=== PATIENT | female | born 1970 | race Caucasian/White ===

== ENCOUNTER 2016-05-02 12:36 | Inpatient (IN) | payer OTHER ==
[2016-05-02] MEDS ORDERED: Phenergan 25 MG INJ IM ONE (12:59)
[2016-05-02] MEDS ORDERED: Pepcid 20 MG VIAL IV ONE ×2 (12:59→13:24)
[2016-05-02] MEDS ORDERED: Sodium Chloride 0.9% 1000 ML 1,000 ML IV STA ×2 (12:59→14:08)
[2016-05-02] MEDS ORDERED: DILAUDID 1 MG/ML INJECTION IV ONE (12:59)
[2016-05-02 13:19] LABS: Eosinophil % 0.3 % (0.00-5.0); Granulocytes % 82.9 % (36.0-66.0); Lymphocytes % 11.1 % (24.0-44.0); Mean Cell Volume 89.9 fl (78-100); Mean Corpuscular Hemoglobin 30.4 pg (26-32); Mean Platelet Volume 8.9 fl (6-9.5); Monocytes % 5.7 % (0.0-12.0); Platelet Count 311 K/mm3 (150-450); Red Blood Count 5.03 M/mm3 (4.1-5.4); Red Cell Distribution Width 12.7 % (11.5-14.0)
[2016-05-02] MEDS ORDERED: Phenergan 25 MG INJ ONE (13:24)
[2016-05-02] MEDS ORDERED: DILAUDID 1 MG/ML INJECTION ONE (13:24)
[2016-05-02] MEDS ORDERED: Sodium Chloride 0.9% 1000 ML 1,000 ML ONE ×2 (13:24→14:10)
[2016-05-02] MEDS ORDERED: Zofran 4 MG/2 ML VIAL IV ONE (13:40)
--- NOTE | 2016-05-02 13:40 | ERPHSYRPT ---
- History of Present Illness Time Seen by Provider: 05/02/16 12:57 Historian: patient, family () Patient Subjective Stated Complaint: ruq abd pain since 299 today. hx of gb disease and is scheduled to have it removed in may. also having nausea Triage Nursing Assessment: to room per w/c, skin w/d, color normal. patient holding ruq abd. states had severe nausea. Physician History: CC: abd pain Hx: 46 y/o patient of Dr Morse and Klaus Covington. She has had intermittent abd pain and had GB testing showing low EF. Today she has rather severe RUQ and epigastric abd pain that is severe. N/V. No urinary problems, fever or chills. Pain is sharp. Prior hysterectomy. Timing/Duration: today Severity of Pain-Max: severe Severity of Pain-Current: severe Allergies/Adverse Reactions: codeine Allergy (Verified 05/02/16 12:49) Home Medications: Insulin Aspart [Novolog Flexpen] 20 unit SQ HS 03/31/16 [History] Insulin Detemir [Levemir Flexpen] 40 unit SQ HS 03/31/16 [History] Glipizide [Glipizide ER] 10 mg PO DAILY 05/02/16 [History] Metformin HCl [Metformin HCl ER] 750 mg PO HS 05/02/16 [History] Hx Tetanus, Diphtheria Vaccination/Date Given: Yes Hx Influenza Vaccination/Date Given: Yes Hx Pneumococcal Vaccination/Date Given: Yes - Review of Systems Constitutional: Fatigue, Malaise, No Fever, No Chills Eyes: No Symptoms Ears, Nose, & Throat: No Symptoms Respiratory: No Cough Cardiac: No Chest Pain Abdominal/Gastrointestinal: Abdominal Pain, Nausea, Vomiting, No Diarrhea Genitourinary Symptoms: No Symptoms Musculoskeletal: No Symptoms Skin: No Symptoms Neurological: No Dizziness, No Focal Weakness, No Headache, No Parasthesia All Other Systems: Reviewed and Negative - Past Medical History Pertinent Past Medical History: Yes Endocrine Medical History: Diabetes Type II GI Medical History: Gallbladder Disease - Past Surgical History Past Surgical History: Yes Female Surgical History: Hysterectomy, Section Other Surgical History: ROTATOR CUFF LEFT 2013, Laparoscopy LT SHOULDER 2012 - Social History Smoking Status: Never smoker Exposure to second hand smoke: No Drug Use: none Patient Lives Alone: No - Nursing Vital Signs Nursing Vital Signs: Initial Vital Signs Temperature 98.4 F Temperature Source Oral Pulse Rate 119 Respiratory Rate 22 Blood Pressure [] 129/86 Pain Intensity 3 - Physical Exam General Appearance: alert, other (uncomfortable appearing) Eye Exam: PERRL/EOMI Ears, Nose, Throat Exam: normal ENT inspection, moist mucous membranes Neck Exam: normal inspection, non-tender, supple Respiratory Exam: normal breath sounds, lungs clear Cardiovascular Exam: regular rate/rhythm, No murmur Gastrointestinal/Abdomen Exam: soft, tenderness (epigastric and RUQ that is severe with guarding) Back Exam: normal inspection Extremity Exam: normal inspection, normal range of motion Neurologic Exam: alert, oriented x 3, cooperative, sensation nml, No motor deficits Skin Exam: warm, dry, No rash SpO2 Interpretation: normal SpO2: 97 Oxygen Delivery: Room Air - Course Nursing assessment & vital signs reviewed: Yes EKG Interpreted by Me: RATE (112), Sinus Tach, NORMAL AXIS, Q-wave (inferior), Non-specific ST Changes (poor r wave progression) - Radiology Exams AAS/CXR X-ray Interpretation: Discussed w/ radiologist, Negative Ordered Tests: Active Orders 24 hr Category Date Time Status EKG-ER Only STAT Care 05/02/16 13:40 Active IV Insertion STAT Care 05/02/16 12:59 Active NPO (ED) STAT Care 05/02/16 12:59 Active Consult Surgery ROUTINE Cons 05/02/16 15:16 Active OBSTR/ACUTE ABDOMEN SERIES Stat Exams 05/02/16 12:59 Completed BLOOD CULTURE Stat Lab 05/02/16 15:17 Ordered CBC W DIFF Stat Lab 05/02/16 12:50 Completed CMP Stat Lab 05/02/16 12:50 Completed LIPASE Stat Lab 05/02/16 12:50 Completed Lactic Acid Urgent Lab 05/02/16 13:15 Completed Lactic Acid Urgent Lab 05/02/16 15:16 Ordered Medication Summary Generic Name Dose Route Start Last Admin Trade Name Freq PRN Reason Stop Dose Admin Piperacillin Sod/Tazobactam Sod 100 mls @ 100 mls/hr 05/02/16 15:17 Zosyn 3.375gm/100 Ml D5w IV 05/02/16 16:16 STAT ONE Discontinued Medications Generic Name Dose Route Start Last Admin Trade Name Freq PRN Reason Stop Dose Admin Famotidine 20 mg 05/02/16 12:59 05/02/16 13:35 Pepcid 20 Mg Vial IV 05/02/16 13:00 20 mg STAT ONE Administration Famotidine Confirm 05/02/16 13:24 Pepcid 20 Mg Vial Administered 05/02/16 13:25 Dose 20 mg IV .STK-MED ONE Hydromorphone HCl 1 mg 05/02/16 12:59 05/02/16 13:35 Dilaudid 1 Mg/Ml Injection IV 05/02/16 13:00 1 mg STAT ONE Administration Hydromorphone HCl Confirm 05/02/16 13:24 Dilaudid 1 Mg/Ml Injection Administered 05/02/16 13:25 Dose 1 mg .ROUTE .STK-MED ONE Sodium Chloride 1,000 mls @ 999 mls/hr 05/02/16 12:59 05/02/16 13:33 Sodium Chloride 0.9% 1000 Ml IV 05/02/16 13:59 999 mls/hr .Q1H1M STA Administration Sodium Chloride Confirm 05/02/16 13:24 Sodium Chloride 0.9% 1000 Ml Administered 05/02/16 13:25 Dose 1,000 mls @ ud .ROUTE .STK-MED ONE Sodium Chloride 1,000 mls @ 999 mls/hr 05/02/16 14:08 05/02/16 14:12 Sodium Chloride 0.9% 1000 Ml IV 05/02/16 15:08 999 mls/hr .Q1H1M STA Administration Sodium Chloride Confirm 05/02/16 14:10 Sodium Chloride 0.9% 1000 Ml Administered 05/02/16 14:11 Dose 1,000 mls @ ud .ROUTE .STK-MED ONE Ondansetron HCl 4 mg 05/02/16 13:40 05/02/16 13:46 Zofran 4 Mg/2 Ml Vial IV 05/02/16 13:41 4 mg STAT ONE Administration Ondansetron HCl Confirm 05/02/16 13:45 Zofran 4 Mg/2 Ml Vial Administered 05/02/16 13:46 Dose 4 mg .ROUTE .STK-MED ONE Promethazine HCl 25 mg 05/02/16 12:59 05/02/16 13:35 Phenergan 25 Mg Inj IM 05/02/16 13:00 25 mg STAT ONE Administration Promethazine HCl Confirm 05/02/16 13:24 Phenergan 25 Mg Inj Administered 05/02/16 13:25 Dose 25 mg .ROUTE .STK-MED ONE Lab/Rad Data: Laboratory Result Diagrams 05/02/16 12:50 05/02/16 12:50 Laboratory Results 05/02/16 05/02/16 05/02/16 Range/Units 13:15 12:50 12:50 WBC 22.0 H (4.0-10.5) K/mm3 RBC 5.03 (4.1-5.4) M/mm3 Hgb 15.3 (12.0-16.0) gm/dl Hct 45.2 (35-47) % MCV 89.9 (78-100) fl MCH 30.4 (26-32) pg MCHC 33.8 (32-36) g/dl RDW 12.7 (11.5-14.0) % Plt Count 311 (150-450) K/mm3 MPV 8.9 (6-9.5) fl Gran % 82.9 H (36.0-66.0) % Lymphocytes % 11.1 L (24.0-44.0) % Monocytes % 5.7 (0.0-12.0) % Eosinophils % 0.3 (0.00-5.0) % Basophils % 0.0 (0.0-0.4) % Basophils # 0.01 (0-0.4) Sodium 139 (136-145) mEq/L Potassium 4.6 (3.5-5.1) mEq/L Chloride 102 (98-107) mEq/L Carbon Dioxide 22.9 (21-32) mEq/L Anion Gap 18.4 H (5-15) MEQ/L BUN 14 (9-20) mg/dL Creatinine 0.92 (0.55-1.30) mg/dl Estimated GFR > 60 ML/MIN Glucose 265 H (70-110) MG/DL Lactic Acid 3.8 H (0.4-2.0) Calcium 9.4 (8.5-10.1) mg/dL Total Bilirubin 0.5 (0.2-1.0) mg/dL AST 18 (15-37) U/L ALT 33 (12-78) U/L Alkaline Phosphatase 72 (46-116) U/L Serum Total Protein 8.5 H (6.4-8.2) gm/dL Albumin 4.2 (3.4-5.0) g/dL Lipase 245 (73-393) U/L - Progress Progress Note: 05/02/16 15:17 The pain is improved. 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 Called Dr tony for Dr Covington. He advised medical admission, abtx, hydration. Paged Dr Morse for admission. Counseled pt/family regarding: lab results, diagnosis, need for follow-up, rad results - Departure Time of Disposition: 15:18 Departure Disposition: In-patient Admission Clinical Impression: Acute abdominal pain, Acute acalculous cholecystitis Type 2 diabetes mellitus Qualifiers: Diabetes mellitus complication status: without complication Diabetes mellitus long term care social worker insulin use: with long term care social worker use Qualified Code(s): E11.9 - Type 2 diabetes mellitus without complications; Z79.4 - intermediate (current) use of insulin Condition: Stable Critical Care Time: No
--- NOTE | 2016-05-02 13:43 | XRAY ---
Indication: Right upper quadrant abdominal pain. Comparison: None 2 views of the abdomen nonacute and nonobstructed. Multiple pelvic surgical clips. Solid organs and osseous structures unremarkable. Single frontal chest demonstrates normal heart, lungs, and bony thorax. Impression: Nonacute nonobstructed abdomen. Normal 1 view chest.
[2016-05-02] MEDS ORDERED: Zofran 4 MG/2 ML VIAL ONE (13:45)
[2016-05-02 14:14] LABS: ALBUMIN 4.2 g/dL (3.4-5.0); ALKALINE PHOSPHATASE 72 U/L (46-116); ANION GAP 18.4 MEQ/L (5-15); BILIRUBIN,TOTAL 0.5 mg/dL (0.2-1.0); BLOOD UREA NITROGEN 14 mg/dL (9-20); CHLORIDE 102 mEq/L (98-107); Carbon Dioxide 22.9 mEq/L (21-32); Glucose 265 MG/DL (70-110); LIPASE 245 U/L (73-393); Potassium 4.6 mEq/L (3.5-5.1); SGOT/AST 18 U/L (15-37); SGPT/ALT 33 U/L (12-78); SODIUM 139 mEq/L (136-145); Total Protein 8.5 gm/dL (6.4-8.2)
[2016-05-02] MEDS ORDERED: Zosyn 3.375GM/100 Ml D5W 100 ML IV ONE ×2 (15:17→15:34)
[2016-05-02] MEDS ORDERED: Zofran 4 MG/2 ML VIAL IV PRN (15:56)
[2016-05-02] MEDS ORDERED: NovoLOG Insulin SQ PRN (15:56)
--- NOTE | 2016-05-02 16:01 | CONS ---
CONSULT DATE: 05/02/16 HISTORY OF PRESENT ILLNESS: The patient is a 46 y/o female who had some right upper quadrant pain, nausea, vomiting, and diarrhea. Has been going on for a few days. She had episodes back in March. Ended up having an US that showed fatty infiltration of the liver, no stones. She had an ejection fraction of 1% and she had seen Dr. Covington and had been set up for gallbladder eventually, but has had increased symptoms and needed admission at this time. PAST MEDICAL HISTORY: Diabetes. PAST SURGICAL HISTORY: Had , rotator cuff. She arthroscopic shoulder surgery. Hysterectomy. HOME MEDICATIONS: Include glipizide, metformin, and she takes some insulin. FAMILY HISTORY: Negative with regards to this problem. SOCIAL HISTORY: Rare alcohol use. Denies abuse. REVIEW OF SYSTEMS: 10 systems reviewed per admission assessment pertinent for as noted above. No chest pain or palpitations. Other systems negative or noncontributory other than above or per preadmission questionnaire. PHYSICAL EXAMINATION: Temperature 98.4, pulse is in the low 100s, BP 129/86, pulse Ox 96%, WBC 22. GENERAL: Slightly uncomfortable. Otherwise, no acute distress. HEENT: Sclerae nonicteric. NECK: No JVD. CHEST: Equal excursion. Nonlabored breathing. CVS: Regular rhythm. ABDOMEN: Soft. Had some mild tenderness in right upper quadrant. No peritoneal signs currently. EXTREMITIES: No significant edema. NEURO: Alert, moving extremities symmetrically. No gross motor deficits noted. On her CT scan, she did have some mesenteric nodes or enlarged mesenteric adenitis back in March. Again, HIDA ejection fraction 1%. IMPRESSION: RIGHT UPPER QUADRANT PAIN, NAUSEA, VOMITING, DIARRHEA. Can be exacerbation of chronic cholecystitis, symptomatic biliary dyskinesia with acute exacerbation vs enteritis or mesenteric adenitis viral syndrome. Either way, she needs IV hydration tonight. Likely, if she is improved, likely would plan on considering cholecystectomy tomorrow at some point, laparoscopic cholecystectomy, possible open. General risks of bleeding; infection; risk of trocar injury or hernia; small risk of bowel, bladder, or blood vessel injury; small risk of bile leak, bile duct injury, retained stone or sludge possibly requiring further procedures either open or endoscopic retrograde cholangiopancreatography; general risks of anesthesia, deep vein thrombosis, pulmonary embolism, or pneumonia; perioperative risks of aches, pains, bloating, or constipation and/or loose stools possibly chronic in nature; the possibility that if this procedure didn't improve her symptoms, she may need further work-up and/or testing, endoscopy or other studies or procedures. She understands. She also understands she could also have a viral syndrome and enteritis on top of her gallbladder issue given her CT findings and diarrhea. She understands and agrees to the planned procedure. Will hydrate her up tonight, keep her NPO after midnight, possible cholecystectomy tomorrow some time. She agrees with the plan. Thank you for the consult.
[2016-05-02] MEDS: Pepcid 20 MG VIAL IV SCH (21:49)
[2016-05-02] MEDS: Lantus Insulin SQ SCH (21:49)
[2016-05-02] MEDS: DILAUDID 2 MG INJECTION IV PRN (22:08)
[2016-05-02] MEDS: Zosyn 3.375GM/100 Ml D5W 100 ML IV SCH (22:22)
[2016-05-03] MEDS: Zosyn 3.375GM/100 Ml D5W 100 ML IV SCH ×4 (00:11→18:13)
[2016-05-03] MEDS: DILAUDID 2 MG INJECTION IV PRN ×2 (04:27→11:23)
[2016-05-03 06:23] LABS: Eosinophil % 2.3 % (0.00-5.0); Granulocytes % 47.2 % (36.0-66.0); Lymphocytes % 44.1 % (24.0-44.0); Mean Cell Volume 93.1 fl (78-100); Mean Platelet Volume 8.6 fl (6-9.5); Monocytes % 6.4 % (0.0-12.0); Platelet Count 239 K/mm3 (150-450); Red Cell Distribution Width 12.7 % (11.5-14.0); White Blood Count 10.5 K/mm3 (4.0-10.5)
[2016-05-03 06:27] LABS: Mean Corpuscular Hemoglobin 30.2 pg (26-32)
[2016-05-03 06:33] LABS: ALBUMIN 3.3 g/dL (3.4-5.0); ALKALINE PHOSPHATASE 57 U/L (46-116); ANION GAP 7.2 MEQ/L (5-15); BILIRUBIN,TOTAL 0.4 mg/dL (0.2-1.0); BLOOD UREA NITROGEN 8 mg/dL (9-20); CHLORIDE 105 mEq/L (98-107); Carbon Dioxide 25.1 mEq/L (21-32); Glucose 122 MG/DL (70-110); Potassium 3.7 mEq/L (3.5-5.1); SGOT/AST 13 U/L (15-37); SGPT/ALT 24 U/L (12-78); SODIUM 134 mEq/L (136-145); Total Protein 6.8 gm/dL (6.4-8.2)
[2016-05-03] MEDS ORDERED: Decadron 4 MG INJ IV ONE (08:00)
[2016-05-03] MEDS ORDERED: DIPRIVAN 200 MG/20 ML IV ONE (08:00)
[2016-05-03] MEDS ORDERED: SUBLIMAZE 100 MCG/2 ML IV ONE (08:00)
[2016-05-03] MEDS ORDERED: ROBINUL IV ONE (08:00)
[2016-05-03] MEDS ORDERED: TORAdol 30 mg Injection IV ONE (08:00)
[2016-05-03] MEDS ORDERED: Zofran 4 MG/2 ML VIAL IV ONE (08:00)
[2016-05-03] MEDS ORDERED: Quelicin Fliptop 200 MG/10 ML IV ONE (08:00)
[2016-05-03] MEDS ORDERED: Versed 2 MG/2 ML Injection IV ONE (08:00)
[2016-05-03] MEDS ORDERED: DILAUDID 2 MG INJECTION IV ONE (08:00)
[2016-05-03] MEDS ORDERED: Zemuron 100 MG/10 ML IV ONE (08:00)
[2016-05-03] MEDS ORDERED: BLOXIVERZ IV ONE (08:00)
[2016-05-03] MEDS ORDERED: Pepcid 20 MG VIAL IV SCH (09:15)
[2016-05-03] MEDS ORDERED: Lactated Ringers 1,000 ML IV SCH (09:15)
[2016-05-03] MEDS: Pepcid 20 MG VIAL IV SCH ×2 (09:22→21:16)
[2016-05-03] MEDS: Lantus Insulin SQ SCH ×2 (09:23→21:14)
[2016-05-03] MEDS ORDERED: MEFOXIN 2 GM PREMIX** 50 ML IV SCH (10:00)
--- NOTE | 2016-05-03 10:14 | PCM.NOTE ---
Date and Time: 05/03/16 1012 Subjective Assessment: patient has felt a little better today, no vomiting this morning. still has pain but is improved. Objective Exam General Appearance: no apparent distress, alert, obese Skin Exam: normal color, warm, dry Respiratory Exam: normal breath sounds, lungs clear, No respiratory distress Cardiovascular Exam: regular rate/rhythm, normal heart sounds Gastrointestinal/Abdomen Exam: tenderness (ruq), No guarding, No rebound Extremity Exam: normal inspection, normal range of motion OBJECTIVE DATA Vital Signs: Vital Signs - 24 hr Temp Pulse Resp BP BP Pulse Ox 05/03/16 07:16 97.8 F 91 H 20 114/65 97 05/03/16 04:00 97.8 F 83 18 115/56 97 05/03/16 00:00 97.8 F 86 18 113/63 95 05/02/16 20:00 98.5 F 101 H 17 116/63 99 05/02/16 16:08 98.3 F 112 H 16 115/69 96 05/02/16 15:42 127/78 05/02/16 15:19 97 05/02/16 14:08 119 H 22 129/86 96 05/02/16 13:38 115 H 22 131/83 97 05/02/16 12:43 98.4 F 125 H 20 142/84 97 Pain Assessment - Last Documented Pain Intensity 2 Pain Scale Used 0-10 Pain Scale Intake and Output: Intake & Output 04/30/16 05/01/16 05/02/16 05/03/16 11:59 11:59 11:59 11:59 Intake Total 2121 Balance 2122 Weight 86.806 kg Lab Results: Accuchecks Date 05/03/16 Date 05/03/16 Time 06:02 Time 00:28 Accucheck Value: 129 Accucheck Value: 111 Lab Results-Last 24 Hours 05/03/16 05/03/16 Range/Units 05:25 05:25 WBC 10.5 (4.0-10.5) K/mm3 RBC 3.90 L (4.1-5.4) M/mm3 Hgb 11.8 L (12.0-16.0) gm/dl Hct 36.3 (35-47) % MCV 93.1 (78-100) fl MCH 30.2 (26-32) pg MCHC 32.5 (32-36) g/dl RDW 12.7 (11.5-14.0) % Plt Count 239 (150-450) K/mm3 MPV 8.6 (6-9.5) fl Gran % 47.2 (36.0-66.0) % Lymphocytes % 44.1 H (24.0-44.0) % Monocytes % 6.4 (0.0-12.0) % Eosinophils % 2.3 (0.00-5.0) % Basophils % 0.0 (0.0-0.4) % Basophils # 0 (0-0.4) Sodium 134 L (136-145) mEq/L Potassium 3.7 (3.5-5.1) mEq/L Chloride 105 (98-107) mEq/L Carbon Dioxide 25.1 (21-32) mEq/L Anion Gap 7.2 (5-15) MEQ/L BUN 8 L (9-20) mg/dL Creatinine 0.67 (0.55-1.30) mg/dl Estimated GFR > 60 ML/MIN Glucose 122 H (70-110) MG/DL Calcium 8.1 L (8.5-10.1) mg/dL Total Bilirubin 0.4 (0.2-1.0) mg/dL AST 13 L (15-37) U/L ALT 24 (12-78) U/L Alkaline Phosphatase 57 (46-116) U/L Serum Total Protein 6.8 (6.4-8.2) gm/dL Albumin 3.3 L (3.4-5.0) g/dL Multi-Disciplinary Progress Notes: Multi-Disciplinary Progress Notes 05/03/16 07:51 Case Management Note by Kimberly Sheehan DISCHARGE PLAN REVIEWED. PT NORMALLY ACTIVE AND INDEPENDENT OF ALL ADL'S. LIVES AT HOME WITH SPOUSE AND CHILDREN. PLAN TO RETURN HOME TO PRE EPISODIC LEVEL OF FUNCTION. WILL CONTINUE TO MONITOR FOR ALL D/C NEEDS. Initialized on 05/03/16 07:51 - END OF NOTE Assessment/Plan (1) Acute acalculous cholecystitis Current Visit: Yes Status: Acute Assessment & Plan: continue zosyn, surgery has been consulted. patient is NPO for possible cholecystectomy today Code(s): K81.0 - ACUTE CHOLECYSTITIS (2) Type 2 diabetes mellitus Current Visit: Yes Status: Acute Qualifiers: Diabetes mellitus complication status: without complication Diabetes mellitus penitentiary insulin use: with dedicated intermodal truck driver use Qualified Code(s): E11.9 - Type 2 diabetes mellitus without complications; Z79.4 - [facility] (current) use of insulin Assessment & Plan: stable, on sliding scale insulin at this time
[2016-05-03] MEDS ORDERED: Lactated Ringers 1,000 ML IV ONE ×2 (14:20→16:35)
[2016-05-03] MEDS ORDERED: Sensorcaine 0.25% 10 ML ONE (14:20)
--- NOTE | 2016-05-03 14:55 | HP ---
HISTORY OF PRESENT ILLNESS: This is a 46-year-old patient with history of chronic cholecystitis and diabetes mellitus type 2, presented to the emergency department today with right upper quadrant pain, vomiting and diarrhea. She states the pain started about 3 a.m. She just saw Dr. Covington yesterday in consultation about having her gallbladder taken out. I had seen her on April 11, 2016, and referred her to Dr. Covington after she had had a HIDA scan with injection fraction of 1% that was ordered by the ER doctor who saw her before she came to see me as a new patient. The patient reports her pain was a 9/10 and then a 4/10 after she received the pain medicine. She denied any fevers, reports she has had chills and sweating. She reports decreased appetite yesterday and feeling bloated. REVIEW OF SYSTEMS: She denies any chest pain, no dyspnea, no dysuria, no rashes, no lower extremity edema, otherwise, review of systems is negative. ALLERGIES: CODEINE AND LATEX. MEDICATIONS: Glipizide 10 mg ER 1 tablet b.i.d., Levemir 20 units Flexpen b.i.d., Metformin 750 mg tablet, 3 tablets a day; Novolog sliding scale which she does herself. PAST MEDICAL HISTORY: Diabetes mellitus type 2, history of high blood pressure but currently off medications, hyperlipidemia. She denies any history of heart problems. SURGICAL HISTORY: She has had rotator cuff repair in her left shoulder in 2014, and arthroscopic surgery of her left shoulder in 2010. Scope of her knee in 1987. Hysterectomy in the past, tubal ligation, x2. SOCIAL HISTORY: She is and lives with her , her sister and her niece. She rarely drinks alcohol. She quit smoking in 2006. FAMILY HISTORY: Her father had heart disease and at 62. She has a brother with heart disease, a sister with heart disease. Her mother had diabetes and kidney disease and at age 50 from respiratory failure and also at the end of her life found a tumor on her esophagus. PHYSICAL EXAMINATION: VITAL SIGNS: T-current 98.3, T-Max 98.4, heart rate 112 to 125, currently 112. Respiratory rate 16 to 22, blood pressure 115 to 131 over 69 to 86. Weight 86 kg. Oxygen saturation 96 to 97% on room air. Respiratory rate 20 to 22. GENERAL: The patient is a pleasant, talkative lady sitting up in no acute distress, alert and oriented. CARDIOVASCULAR: She is tachycardic with regular rhythm, no murmurs, gallops or rubs appreciated. CHEST: Clear to auscultation bilaterally. No crackles or wheezes. Equal breath sounds. ABDOMEN: Tender in the right upper quadrant, no guarding, no rigidity. Hypoactive bowel sounds. EXTREMITIES: No cyanosis, clubbing or edema.; SKIN: Warm, dry and intact. LABS: Her white blood cell count was 22,000 with 82% granulocytes, 11% lymphocytes. Glucose 265. Lactic acid on admission was 3.8, and repeat was 2.3. Normal is up to 2.0. LFT's were normal. She had 2 blood cultures in lab. An acute abdominal series was read as being normal. ASSESSMENT AND PLAN: 1. Acute cholecystitis with history of chronic cholecystitis. The general surgeon has seen her and planning on doing surgery while she is here in the hospital. She is on IV Zosyn. Will plan to repeat her CBC in the morning. 2. Diabetes mellitus type 2. I am going to give her some long-acting insulin, 10 units subcutaneously b.i.d., which is approximately half of what she normally takes and we will do a low dose sliding scale of Novolog. 3. Abnormal EKG. She has Q waves in leads III and aVF. She reports that she is able to exercise on the treadmill without any chest pain, and that she had a Lexiscan 5 years ago in [place] that was normal. Given her good exercise tolerance she would be okay to proceed with the gallbladder surgery. 4. History of high blood pressure, blood pressure is currently well controlled.
[2016-05-03] MEDS ORDERED: Zofran 4 MG/2 ML VIAL ONE (16:34)
[2016-05-03] MEDS ORDERED: Phenergan 25 MG INJ ONE (16:43)
[2016-05-03] MEDS ORDERED: NORCO 5/325 MG PO PRN (17:32)
[2016-05-03] MEDS ORDERED: MORPHINE SULFATE 4 MG INJ IV PRN (17:32)
[2016-05-03] MEDS: D5W/0.45NS W/ 20mEq KCl 1000 ML 1,000 ML IV SCH (17:47)
[2016-05-03] MEDS: NovoLOG Insulin SQ PRN (21:14)
[2016-05-04] MEDS: Zosyn 3.375GM/100 Ml D5W 100 ML IV SCH (00:17)
[2016-05-04] MEDS: D5W/0.45NS W/ 20mEq KCl 1000 ML 1,000 ML IV SCH (05:26)
[2016-05-04 05:59] LABS: Granulocytes % 75.1 % (36.0-66.0); Lymphocytes % 19.1 % (24.0-44.0); Mean Cell Volume 92.5 fl (78-100); Mean Platelet Volume 8.8 fl (6-9.5); Monocytes % 5.8 % (0.0-12.0); Platelet Count 207 K/mm3 (150-450); Red Blood Count 3.71 M/mm3 (4.1-5.4); Red Cell Distribution Width 12.3 % (11.5-14.0); White Blood Count 9.4 K/mm3 (4.0-10.5)
[2016-05-04 06:01] LABS: Mean Corpuscular Hemoglobin 30.4 pg (26-32)
[2016-05-04 06:22] LABS: ALBUMIN 3.1 g/dL (3.4-5.0); ALKALINE PHOSPHATASE 64 U/L (46-116); ANION GAP 14.5 MEQ/L (5-15); BILIRUBIN,TOTAL 0.3 mg/dL (0.2-1.0); BLOOD UREA NITROGEN 7 mg/dL (9-20); CHLORIDE 104 mEq/L (98-107); Carbon Dioxide 24.4 mEq/L (21-32); Glucose 321 MG/DL (70-110); Potassium 4.5 mEq/L (3.5-5.1); SGOT/AST 25 U/L (15-37); SGPT/ALT 37 U/L (12-78); SODIUM 138 mEq/L (136-145); Total Protein 6.7 gm/dL (6.4-8.2)
[2016-05-04 07:12] VITALS: BP 124/65; PULSE 78; O2SAT 98
--- NOTE | 2016-05-04 07:13 | PCM.DS ---
Discharge Summary Date of Admission: 05/02/16 15:53 Admitting Physician: JOHANN BALDERAS Primary Care Provider: CHRISTIN FELTON Allergies Allergies codeine Allergy (Verified 05/02/16 12:49) latex Allergy (Verified 05/02/16 17:04) Hospital Summary - Hospital Course Hospital Course: patient doing great s/p lap cholecystectomy pod #1, tolerating po intake. + flatus - Vitals & Intake/Output Vital Signs: Vital Signs Temperature 98 F 05/04/16 04:15 Pulse Rate 66 05/04/16 04:15 Respiratory Rate 16 05/04/16 04:15 Blood Pressure 132/76 05/04/16 04:15 O2 Sat by Pulse Oximetry 97 05/04/16 04:15 Oxygen-Last Documented O2 Percentage 2 Liters = 28% Intake & Output: Intake & Output 05/01/16 05/02/16 05/03/16 05/04/16 11:59 11:59 11:59 11:59 Intake Total 2 2324 Balance 2121 2324 Weight 86.806 kg 86.806 kg - Lab Result Diagrams: 05/04/16 04:30 05/04/16 04:30 Lab Results-Last 24 Hrs: Accuchecks Accucheck Value: 310 Accucheck Value: 283 Accucheck Value: 216 Accucheck Value: 144 Lab Results-Last 24 Hours 05/04/16 05/04/16 Range/Units 04:30 04:30 WBC 9.4 (4.0-10.5) K/mm3 RBC 3.71 L (4.1-5.4) M/mm3 Hgb 11.3 L (12.0-16.0) gm/dl Hct 34.3 L (35-47) % MCV 92.5 (78-100) fl MCH 30.4 (26-32) pg MCHC 32.9 (32-36) g/dl RDW 12.3 (11.5-14.0) % Plt Count 207 (150-450) K/mm3 MPV 8.8 (6-9.5) fl Gran % 75.1 H (36.0-66.0) % Lymphocytes % 19.1 L (24.0-44.0) % Monocytes % 5.8 (0.0-12.0) % Eosinophils % 0.0 (0.00-5.0) % Basophils % 0.0 (0.0-0.4) % Basophils # 0 (0-0.4) Sodium 138 (136-145) mEq/L Potassium 4.5 (3.5-5.1) mEq/L Chloride 104 (98-107) mEq/L Carbon Dioxide 24.4 (21-32) mEq/L Anion Gap 14.5 (5-15) MEQ/L BUN 7 L (9-20) mg/dL Creatinine 0.86 (0.55-1.30) mg/dl Estimated GFR > 60 ML/MIN Glucose 321 H (70-110) MG/DL Calcium 8.1 L (8.5-10.1) mg/dL Total Bilirubin 0.3 (0.2-1.0) mg/dL AST 25 (15-37) U/L ALT 37 (12-78) U/L Alkaline Phosphatase 64 (46-116) U/L Serum Total Protein 6.7 (6.4-8.2) gm/dL Albumin 3.1 L (3.4-5.0) g/dL Micro Results-Entire Visit: Accuchecks Accucheck Value: 310 Accucheck Value: 283 Accucheck Value: 216 Accucheck Value: 144 Discharge Exam General Appearance: no apparent distress, alert Respiratory Exam: normal breath sounds Cardiovascular Exam: regular rate/rhythm Gastrointestinal/Abdomen Exam: other (dressings c/d/i) Extremity Exam: normal inspection, normal range of motion Final Diagnosis/Problem List - Final Discharge Diagnosis/Problem (1) Acute acalculous cholecystitis Current Visit: Yes Status: Acute (2) Type 2 diabetes mellitus Current Visit: Yes Status: Acute - Discharge Disposition: Home, Self-Care Condition: Stable Prescriptions: Continue Insulin Aspart [Novolog Flexpen] 20 unit SQ HSPRN PRN PRN Reason: Hyperglycemia Insulin Detemir [Levemir Flexpen] 40 unit SQ HS Promethazine HCl 25 mg [Phenergan 25 mg] 25 mg PO Q4H PRN PRN #14 tablet PRN Reason: Nausea/Vomiting Metformin HCl [Metformin HCl ER] 3 tab PO HS Glipizide [Glipizide ER] 10 mg PO BID Pyridoxine HCl [Vitamin B-6] 100 mg PO DAILY Follow up with: BIANCA FERRARA [COURTESY STAFF] - 1 Week
[2016-05-04] MEDS: NovoLOG Insulin SQ PRN (08:11)
[2016-05-04] MEDS: Lantus Insulin SQ SCH (09:00)
--- NOTE | 2016-05-05 11:32 | OP ---
SURGERY DATE/TIME: 05/03/2016 1432 PREOPERATIVE DIAGNOSIS: Symptomatic biliary dyskinesia, acute exacerbation of chronic cholecystitis. POSTOPERATIVE DIAGNOSIS: Symptomatic dyskinesia, acute chronic cholecystitis. PROCEDURE: Laparoscopic cholecystectomy. SURGEON: Dr. Cas Gregory. ANESTHESIA: General. ESTIMATED BLOOD LOSS: Minimal. INDICATIONS: As noted above. Risks and benefits explained in detail but not limited to and consent obtained. DESCRIPTION OF PROCEDURE AND FINDINGS: The patient was taken to the OR. General anesthesia was induced. Abdomen prepped and draped in the usual sterile fashion. After official time out and no disagreement with planned procedure, a transverse incision made at the supraumbilical area. Fascia grasped and pulled upward. Veress needle inserted and tested with saline. Pneumoperitoneum accomplished insufflating opening pressure of 0-15. An 11 mm bladeless port and camera were inserted without difficulty followed by two - 5 mm right upper quadrant ports and a 5 mm epigastric port. The gallbladder was somewhat intrahepatic and fibrofatty replaced liver to left lobe flopping in the field of view but slowly and carefully the gallbladder was able to be retracted upward and laterally away from Calot's triangle. Dissection carried posterior, lateral to anterior fashion. It took some time given the mild chronic inflammatory reaction. It was slowly and carefully skeletonized until the critical view obtained both anteriorly and posteriorly. Once this was accomplished the cystic duct and cystic artery were clipped x3 and divided in the usual fashion. The gallbladder slowly and carefully dissected free from its dense almost concrete attachments to the liver bed, attached to the liver bed. Staying directly on the gallbladder wall clipping additional oozing side branches off of the cystic artery as necessary directly on the gallbladder wall. Just prior to releasing from final attachments to the edge of the liver the liver bed re-inspected. Clips noted to be in place in cystic duct and cystic artery stumps. There were no signs of any active bleeding or bile leakage. It was felt that there was no benefit from drain placement at this point. The gallbladder was released from final attachments to the anterior edge of the liver, pulled up and out the epigastrium wound. There was a small little pinhole from a grasper. A small amount of bile spilled. The gallbladder was able to be pulled free and passed off intact. Copious amount with several liters of warm irrigation irrigating the small amount of bile spilled as well as possible. There was no evidence of any stone or sludge. Copious amount of irrigation irrigating until clear. Liver bed re-inspected one last time. Clips noted to be in place in cystic duct and cystic artery stumps. There were no signs of any active bleeding or bile leakage. It was felt there was no benefit from drain placement. At this point the fascial defects at 10/11 port sites and supraumbilical area were closed with puncture closure device with #1 Vicryl. Pneumoperitoneum decompressed. The wound was irrigated out. Skin incision closed with 4-0 Vicryl. Steri-Strips and sterile dressing applied. 0.25% Marcaine local injected along the skin incision fascial defect. The patient tolerated the procedure well. There were no immediate complications. Findings discussed with the family out in the waiting area.
== END 2016-05-04 09:45 | disposition home or self-care (01) | DRG 419 ==
LOC: ED 12:36 → MED SURG 15:53 → OBSVTOIN 15:53
PROVIDERS: ADMIT Internal Medicine; ATTEND Internal Medicine
PROC: 0FT44ZZ Resection of Gallbladder, Percutaneous Endoscopic Approach (ICD-10-PCS; principal; 2016-05-03)
DX: K80.00 Calculus of gallbladder with acute cholecystitis without obstruction (principal); K82.8 Other specified diseases of gallbladder; E11.9 Type 2 diabetes mellitus without complications; Z79.4 Long term (current) use of insulin; R94.31 Abnormal electrocardiogram [ECG] [EKG]; I10 Essential (primary) hypertension; Z79.899 Other long term (current) drug therapy; Z90.49 Acquired absence of other specified parts of digestive tract
CPT/HCPCS: 00790; 36000; 36415; 74022; 80053; 82962; 83605; 83690; 85025; 87040; 93005; 96360; 96361; 96365; 96372; 96374; 96375; 99140; 99284; J0330; J0694; J1100; J1170; J1885; J2250; J2270; J2405; J2543; J2550; J2704; J2710; J3010

== ENCOUNTER 2018-06-29 08:19 | Emergency (ER) | payer BC ==
[2018-06-29] MEDS ORDERED: Sodium Chloride 0.9% 1000 ML 1,000 ML IV STA ×2 (08:43→09:15)
[2018-06-29] MEDS ORDERED: Zofran 4 MG/2 ML VIAL IV ONE (08:44)
--- NOTE | 2018-06-29 08:49 | ERPHSYRPT ---
- History of Present Illness Time Seen by Provider: 06/29/18 08:39 Historian: patient Exam Limitations: no limitations Patient Subjective Stated Complaint: diarrhea and unable to eat or drink anything or it comes right out Triage Nursing Assessment: Pt c/o of having severe diarrhea since Thursday, waking in the middle of the night approximately every 10-30 minutes to use the restroom, unable to eat or drink, took imodium yesterday with no results, denies pain, weak, dehydrated, vitals wnl, doesn't appear to be in any distress Physician History: 48-year-old white female with history of diabetes type 2 arrives with complaint of multiple episodes of diarrhea symptoms going on since last Thursday 4 days ago. Patient states every time she eats something she has loose stools she denies any bloody stool she does have some lower abdominal cramping. States she has decreased urine today she had a fever when the diarrhea started 4 days ago. She states she is nauseous but no vomiting. Past medical history includes diabetes type 2, gallbladder disease. Past surgical history includes hysterectomy, , rotator cuff on the left , laparoscopy, left shoulder surgery, tubal ligation. Social history denies tobacco alcohol or illicit drug use. Timing/Duration: day(s) (4 days) Activities at Onset: none Quality: cramping Abdominal Pain Onset Location: other (lower abdomen) Pain Radiation: no radiation Severity of Pain-Max: mild Severity of Pain-Current: mild Modifying Factors: Worsens With: analgesics, antacids, breathing, coughing, defecating, eating, exercise, lying down, movement, palpation, rest, urinating, vomiting, position, walking Associated Symptoms: diarrhea, nausea, weakness, No back, No chest pain, No diaphoresis, No fever/chills, No fatigue, No headache, No heartburn, No loss of appetite, No neck pain, No rash, No shortness of breath, No syncope, No vomiting Previous symptoms: no prior history Allergies/Adverse Reactions: codeine Allergy (Verified 06/29/18 08:36) latex Allergy (Verified 06/29/18 08:36) Home Medications: Insulin Aspart [Novolog Flexpen] 20 unit SQ HSPRN PRN 03/31/16 [History] Insulin Detemir [Levemir Flexpen] 50 unit SQ HS 03/31/16 [History] Glipizide [Glipizide ER] 10 mg PO BID 05/02/16 [History] Metformin HCl [Metformin HCl ER] 3 tab PO HS 05/02/16 [History] Atorvastatin Calcium [Lipitor] 80 mg PO DAILY 06/29/18 [History] Carvedilol 12.5 mg [Coreg 12.5 mg] 12.5 mg PO BID 06/29/18 [History] Colestipol HCl [Colestid] 1 gm PO DAILY 06/29/18 [History] Empagliflozin [Jardiance] 10 mg PO DAILY 06/29/18 [History] Ezetimibe 10 mg PO DAILY 06/29/18 [History] Gabapentin 300 mg PO DAILY 06/29/18 [History] PANTOPRAZOLE 40 mg Tablet [Protonix 40MG Tablet] 40 mg PO QAM 06/29/18 [ History] Hx Tetanus, Diphtheria Vaccination/Date Given: Yes Hx Influenza Vaccination/Date Given: Yes Hx Pneumococcal Vaccination/Date Given: Yes - Review of Systems Constitutional: Fever (fever 4 days ago), Malaise, Weakness, No Chills, No Fatigue, No Lethargy, No Night Sweats, No Weight Loss Eyes: No Symptoms Ears, Nose, & Throat: No Symptoms Respiratory: No Cough, No Dyspnea Cardiac: No Chest Pain, No Edema, No Syncope Abdominal/Gastrointestinal: Abdominal Pain (some lower abdominal cramping), Nausea, Diarrhea, No Vomiting, No Constipation, No Hematemesis, No Hematochezia , No Melena, No Dysphagia, No Appetite Changes Genitourinary Symptoms: No Dysuria, No Frequency, No Hematuria, No Hesitancy Musculoskeletal: No Back Pain, No Neck Pain Skin: No Rash Neurological: No Dizziness, No Focal Weakness, No Sensory Changes Psychological: No Symptoms Endocrine: No Symptoms All Other Systems: Reviewed and Negative - Past Medical History Pertinent Past Medical History: Yes Cardiac History: High Cholesterol, Hypertension Endocrine Medical History: Diabetes Type II GI Medical History: Gallbladder Disease - Past Surgical History Past Surgical History: Yes Gastrointestinal: Cholecystectomy Female Surgical History: Hysterectomy, Section Other Surgical History: ROTATOR CUFF LEFT 2013, Laparoscopy LT SHOULDER 2012, lt knee - Social History Smoking Status: Former smoker Exposure to second hand smoke: Yes Drug Use: none Patient Lives Alone: No - Female History Hx Now: No (hysterectomy) - Nursing Vital Signs Nursing Vital Signs: Initial Vital Signs Temperature 97.8 F 06/29/18 08:26 Pulse Rate 109 H 06/29/18 08:26 Respiratory Rate 20 06/29/18 08:26 Blood Pressure 137/101 06/29/18 08:26 O2 Sat by Pulse Oximetry 97 06/29/18 08:26 Pain Scale Pain Intensity 0 - Physical Exam General Appearance: mild distress, alert Eye Exam: PERRL/EOMI Ears, Nose, Throat Exam: normal ENT inspection, pharynx normal, moist mucous membranes Neck Exam: normal inspection, non-tender, supple, full range of motion Respiratory Exam: normal breath sounds, lungs clear, No respiratory distress Cardiovascular Exam: regular rate/rhythm, normal heart sounds, capillary refill <2 sec Gastrointestinal/Abdomen Exam: soft, normal bowel sounds, No tenderness, No mass Back Exam: normal inspection, normal range of motion, No CVA tenderness, No vertebral tenderness Extremity Exam: normal inspection, normal range of motion, pelvis stable Neurologic Exam: alert, oriented x 3, cooperative, electrical installer II-XII nml as tested, normal mood/affect, nml cerebellar function, sensation nml, No motor deficits Skin Exam: normal color, warm, dry SpO2 Interpretation: normal (97%) SpO2: 97 Ordered Tests: Active Orders 24 hr Category Date Time Status Accucheck STAT Care 06/29/18 08:54 Active IV Insertion STAT Care 06/29/18 08:43 Active AMYLASE Stat Lab 06/29/18 08:53 Completed CBC W DIFF Stat Lab 06/29/18 08:53 Completed CMP Stat Lab 06/29/18 08:53 Completed LIPASE Stat Lab 06/29/18 08:53 Completed Lactic Acid Stat Lab 06/29/18 09:00 Completed Manual Differential NC Stat Lab 06/29/18 08:53 Completed UA W/RFX UR CULTURE Stat Lab 06/29/18 10:03 Completed Medication Summary Discontinued Medications Generic Name Dose Route Start Last Admin Trade Name Freq PRN Reason Stop Dose Admin Sodium Chloride 1,000 mls @ 999 mls/hr 06/29/18 08:43 06/29/18 10:15 Sodium Chloride 0.9% 1000 Ml IV 06/29/18 09:43 Infused .Q1H1M STA Infusion Sodium Chloride Confirm 06/29/18 08:54 Sodium Chloride 0.9% 1000 Ml Administered 06/29/18 08:55 Dose 1,000 mls @ ud .ROUTE .STK-MED ONE Sodium Chloride 1,000 mls @ 999 mls/hr 06/29/18 09:15 06/29/18 10:14 Sodium Chloride 0.9% 1000 Ml IV 06/29/18 10:15 999 mls/hr .Q1H1M STA Administration Sodium Chloride Confirm 06/29/18 10:13 Sodium Chloride 0.9% 1000 Ml Administered 06/29/18 10:14 Dose 1,000 mls @ ud .ROUTE .STK-MED ONE Ondansetron HCl 4 mg 06/29/18 08:44 06/29/18 09:01 Zofran 4 Mg/2 Ml Vial IV 06/29/18 08:45 4 mg STAT ONE Administration Ondansetron HCl Confirm 06/29/18 08:55 Zofran 4 Mg/2 Ml Vial Administered 06/29/18 08:56 Dose 4 mg .ROUTE .STK-MED ONE Potassium Chloride 40 meq 06/29/18 09:16 06/29/18 09:26 Klor Con 10 Meq PO 06/29/18 09:17 40 meq STAT ONE Administration Potassium Chloride Confirm 06/29/18 09:17 Klor Con 10 Meq Administered 06/29/18 09:18 Dose 40 meq PO .STK-MED ONE Lab/Rad Data: Laboratory Result Diagrams 06/29/18 08:53 06/29/18 08:53 Laboratory Results 06/29/18 06/29/18 06/29/18 Range/Units 10:03 09:00 08:53 WBC (4.0-10.5) K/mm3 RBC (4.1-5.4) M/mm3 Hgb (12.0-16.0) gm/dl Hct (35-47) % MCV (78-100) fl MCH (26-32) pg MCHC (32-36) g/dl RDW (11.5-14.0) % Plt Count (150-450) K/mm3 MPV (6-9.5) fl Segmented Neutrophils (36.0-66.0) % Lymphocytes (Manual) (24-44) % Monocytes (Manual) (0.0-12.0) % Eosinophils (Manual) (0.00-3.0) % Atypical Lymphocytes % Platelet Estimate (NORMAL) RBC Morphology Sodium 139 (137-145) mmol/L Potassium 3.5 (3.5-5.1) mmol/L Chloride 108 H (98-107) mmol/L Carbon Dioxide 17 L (22-30) mmol/L Anion Gap 17.4 H (5-15) MEQ/L BUN 17 (7-17) mg/dL Creatinine 0.58 (0.52-1.04) mg/dL Estimated GFR > 60.0 ML/MIN Glucose 218 H (74-106) mg/dL Lactic Acid 1.3 (0.4-2.0) Calcium 9.1 (8.4-10.2) mg/dL Total Bilirubin 0.60 (0.2-1.3) mg/dL AST 36 (14-36) U/L ALT 44 H (0-35) U/L Alkaline Phosphatase 72 (38-126) U/L Serum Total Protein 7.8 (6.3-8.2) g/dL Albumin 4.4 (3.5-5.0) g/dL Amylase 60 (30-110) U/L Lipase 248 (23-300) U/L Urine Color YELLOW (YELLOW) Urine Appearance SLIGHTLY CLOUDY (CLEAR) Urine pH 5.0 (5-6) Ur Specific [place] 1.025 (1.005-1.025) Urine Protein 100 (Negative) Urine Ketones TRACE (NEGATIVE) Urine Blood NEGATIVE (0-5) Jose/ul Urine Nitrite NEGATIVE (NEGATIVE) Urine Bilirubin NEGATIVE (NEGATIVE) Urine Urobilinogen NEGATIVE (0-1) mg/dL Ur Leukocyte Esterase NEGATIVE (NEGATIVE) Urine WBC (Auto) 3-5 (0-5) /HPF Urine RBC (Auto) 0-2 (0-2) /HPF U Hyaline Cast (Auto) 3-5 (0-2) /LPF U Epithel Cells (Auto) RARE (FEW) /HPF Urine Bacteria (Auto) RARE (NEGATIVE) /HPF Other Casts (Auto) NEGATIVE (NEGATIVE) /LPF Urine Mucus (Auto) SLIGHT (NEGATIVE) /HPF Urine Culture Reflexed NO (NO) Urine Glucose NEGATIVE (NEGATIVE) mg/dL 06/29/18 Range/Units 08:53 WBC 6.0 (4.0-10.5) K/mm3 RBC 5.08 (4.1-5.4) M/mm3 Hgb 15.2 (12.0-16.0) gm/dl Hct 44.0 (35-47) % MCV 86.6 (78-100) fl MCH 29.9 (26-32) pg MCHC 34.5 (32-36) g/dl RDW 12.9 (11.5-14.0) % Plt Count 245 (150-450) K/mm3 MPV 8.6 (6-9.5) fl Segmented Neutrophils 38 (36.0-66.0) % Lymphocytes (Manual) 41 (24-44) % Monocytes (Manual) 13 H (0.0-12.0) % Eosinophils (Manual) 2 (0.00-3.0) % Atypical Lymphocytes 6 % Platelet Estimate NORMAL (NORMAL) RBC Morphology NORMAL Sodium (137-145) mmol/L Potassium (3.5-5.1) mmol/L Chloride (98-107) mmol/L Carbon Dioxide (22-30) mmol/L Anion Gap (5-15) MEQ/L BUN (7-17) mg/dL Creatinine (0.52-1.04) mg/dL Estimated GFR ML/MIN Glucose (74-106) mg/dL Lactic Acid (0.4-2.0) Calcium (8.4-10.2) mg/dL Total Bilirubin (0.2-1.3) mg/dL AST (14-36) U/L ALT (0-35) U/L Alkaline Phosphatase (38-126) U/L Serum Total Protein (6.3-8.2) g/dL Albumin (3.5-5.0) g/dL Amylase (30-110) U/L Lipase (23-300) U/L Urine Color (YELLOW) Urine Appearance (CLEAR) Urine pH (5-6) Ur Specific [place] (1.005-1.025) Urine Protein (Negative) Urine Ketones (NEGATIVE) Urine Blood (0-5) Jose/ul Urine Nitrite (NEGATIVE) Urine Bilirubin (NEGATIVE) Urine Urobilinogen (0-1) mg/dL Ur Leukocyte Esterase (NEGATIVE) Urine WBC (Auto) (0-5) /HPF Urine RBC (Auto) (0-2) /HPF U Hyaline Cast (Auto) (0-2) /LPF U Epithel Cells (Auto) (FEW) /HPF Urine Bacteria (Auto) (NEGATIVE) /HPF Other Casts (Auto) (NEGATIVE) /LPF Urine Mucus (Auto) (NEGATIVE) /HPF Urine Culture Reflexed (NO) Urine Glucose (NEGATIVE) mg/dL - Progress Progress: improved Progress Note: 06/29/18 11:12 48-year-old white female arrives with complaint of diarrhea since 4 days. She is improved after 2 L of normal saline and Zofran. Patient's labs white blood cell 6.0 hemoglobin 15.2 hematocrit 44 Chemistry 139 potassium 3.5 chloride 108 bicarbonate 17 BUN 17 creatinine 0.58 glucose 218 Amylase is 60 lipase to 48 urinalysis unremarkable other than a trace of ketones. Patient also given 40 mEq orally of potassium. Will discharge patient - Departure Time of Disposition: 11:14 Departure Disposition: Home Clinical Impression: Gastroenteritis, Diarrhea Condition: Fair Critical Care Time: No Referrals: JOHANN BALDERAS [Primary Care Provider] - Additional Instructions: Return home. Plenty of fluids. Clear fluids only 24-48 hours if nausea, vomiting, abdominal pain, diarrhea. Zofran as directed. Follow-up with your family DrMary Jo symptoms worse, no better in 48 hours or persist longer than 72 hours. Return for acute distress or for severe symptoms. Prescriptions: Ondansetron ODT 4 MG [Zofran Odt 4 mg] 4 mg PO Q6H PRN PRN #10 tab.rapdis PRN Reason: nausea and vomiting
[2018-06-29] MEDS ORDERED: Sodium Chloride 0.9% 1000 ML 1,000 ML ONE ×2 (08:54→10:13)
[2018-06-29] MEDS ORDERED: Zofran 4 MG/2 ML VIAL ONE (08:55)
[2018-06-29 08:56] LABS: Hemoglobin 15.2 gm/dl (12.0-16.0); Mean Cell Volume 86.6 fl (78-100); Mean Corpuscular Hemoglobin 29.9 pg (26-32); Mean Corpuscular Hgb Concent. 34.5 g/dl (32-36); Mean Platelet Volume 8.6 fl (6-9.5); Platelet Count 245 K/mm3 (150-450); Red Blood Count 5.08 M/mm3 (4.1-5.4); Red Cell Distribution Width 12.9 % (11.5-14.0)
[2018-06-29 09:10] LABS: ALBUMIN 4.4 g/dL (3.5-5.0); ALKALINE PHOSPHATASE 72 U/L (38-126); AMYLASE 60 U/L (30-110); ANION GAP 17.4 MEQ/L (5-15); BLOOD UREA NITROGEN 17 mg/dL (7-17); CHLORIDE 108 mmol/L (98-107); Calcium 9.1 mg/dL (8.4-10.2); Carbon Dioxide 17 mmol/L (22-30); Creatinine 1 0.58 mg/dL (0.52-1.04); Glucose 218 mg/dL (74-106); LIPASE 248 U/L (23-300); Potassium 3.5 mmol/L (3.5-5.1); SGOT/AST 36 U/L (14-36); SGPT/ALT 44 U/L (0-35); SODIUM 139 mmol/L (137-145); Total Protein 7.8 g/dL (6.3-8.2)
[2018-06-29 09:11] LABS: Eosinophil 2 % (0.00-3.0); Monocyte 13 % (0.0-12.0); Neutrophils 38 % (36.0-66.0); Platelet Estimate NORMAL (NORMAL); Total Cells Counted 100
[2018-06-29 09:12] LABS: ATYPICAL LYMPHS 6 %; Lymphocytes 41 % (24-44)
[2018-06-29] MEDS ORDERED: Klor Con 10 MEQ PO ONE ×2 (09:16→09:17)
[2018-06-29 11:06] LABS: Appearance SLIGHTLY CLOUDY (CLEAR); Bilirubin NEGATIVE (NEGATIVE); Blood NEGATIVE Ery/ul (0-5); Glucose NEGATIVE (NEGATIVE); Ketones TRACE (NEGATIVE); Leukocyte Esterase NEGATIVE (NEGATIVE); Mucus SLIGHT /HPF (NEGATIVE); Nitrite NEGATIVE (NEGATIVE); Protein,Urine Dip 100 (Negative); RBC 0-2 /HPF (0-2); Specific Gravity 1.025 (1.005-1.025); Urobilinogen NEGATIVE mg/dL (0-1)
[2018-06-29 11:07] LABS: Bacteria RARE /HPF (NEGATIVE); Epithelial Cells RARE /HPF (FEW)
[2018-06-29 11:22] VITALS: BP 122/82; PULSE 91; O2SAT 100
== END 2018-06-29 11:30 | disposition home or self-care (01) ==
LOC: ED 08:19
DX: K52.89 Other specified noninfective gastroenteritis and colitis (principal); R19.7 Diarrhea, unspecified
CPT/HCPCS: 36415; 80053; 81001; 82150; 82962; 83605; 83690; 85025; 96360; 96361; 96374; 99284; J2405; A9270-GY

== ENCOUNTER 2018-08-16 11:26 | Day surgery (SDC) | payer BC ==
[2018-08-16] MEDS ORDERED: SUBLIMAZE 100 MCG/2 ML IV ONE (11:27)
[2018-08-16] MEDS ORDERED: DIPRIVAN 200 MG/20 ML IV ONE (11:27)
[2018-08-16] MEDS ORDERED: Zofran 4 MG/2 ML VIAL IV ONE (11:27)
[2018-08-16] MEDS ORDERED: Decadron 4 MG INJ IV ONE (11:27)
[2018-08-16] MEDS ORDERED: CLINDAMYCIN-D5W 900 MG/50 ML*** 900 MG/50 ML BAG IV ONE (11:27)
[2018-08-16] MEDS ORDERED: TORAdol 30 mg Injection IV ONE (11:27)
[2018-08-16] MEDS ORDERED: Lactated Ringers 1,000 ML IV ONE ×2 (12:10→14:15)
[2018-08-16] MEDS ORDERED: Lactated Ringers 1,000 ML IV SCH (12:30)
[2018-08-16] MEDS ORDERED: Sensorcaine 0.25% 10 ML ONE (14:15)
--- NOTE | 2018-08-16 15:12 | HP ---
DATE OF SURGERY: 08/16/2018 HISTORY OF PRESENT ILLNESS: This is a 48 year-old with cyst on her chest removed back in 1990, now since last Thursday increasing redness. She had cellulitis across her breast. She was started on some oral antibiotics over the past few days. The breast area has improved but still has a persistent indurated area, seems to have a ruptured cyst site between her breast and chest area. PAST MEDICAL HISTORY: Diabetes, some hyperlipidemia. PAST SURGICAL HISTORY: Cholecystectomy. Two sections. Hysterectomy. Shoulder, knee and hand surgery MEDICATIONS: Metformin, Coreg, Losartan, Lipitor, Glipizide, colestipol, Jardiance, Claritin. ALLERGIES: CODEINE. LATEX. FAMILY HISTORY: Heart disease. Diabetes. SOCIAL HISTORY: Quit smoking years ago. Denies alcohol abuse. REVIEW OF SYSTEMS: Twelve systems reviewed per admission assessment. She is a little bit overweight. No chest pain or palpitations other being sore around where this cyst is. No shortness of breath. PHYSICAL EXAMINATION: GENERAL: No acute distress. HEENT: Sclerae nonicteric. NECK: No JVD. CHEST: She has a ruptured cyst site with some induration and redness right edge of her medial breast and chest area seems consistent with a ruptured cyst site. CVS: Regular rate and rhythm. ABDOMEN: Soft. No peritoneal signs. EXTREMITIES: No cyanosis. No significant edema. NEURO: Alert, oriented, moving extremities grossly symmetrically. No gross motor deficits noted. IMPRESSION: Ruptured cyst site, infected cyst between the breast/chest area. I feel she needs excision possible packing depending on operative findings. General risk of bleeding or infection, risk of ongoing infection possibly requiring other procedures, possible need for packing the wound on a daily basis or pulling the packing strip out over a few days, general risk of anesthesia, deep venous thrombosis, pulmonary embolism, pneumonia. General risk of aches and pains but not limited to, the fact that she would have a scar in the area. She understands and agrees to the planned procedure. Will proceed with excisional biopsy of ruptured cyst site breast and chest area as an outpatient, possible packing depending on operative findings. I do not feel this can wait until next week so will add to the schedule today.
--- NOTE | 2018-08-16 15:31 | OP ---
SURGERY DATE/TIME: 08/16/2018 1451 PREOPERATIVE DIAGNOSIS: Ruptured cyst site right breast/chest area. POSTOPERATIVE DIAGNOSIS: Ruptured cyst site right breast/chest area with abscess cavity. PROCEDURE: Excision and biopsy of ruptured cyst site and abscess right breast and chest area (approximately 5.5 cm). SURGEON: Dr. Cas Gregory. ANESTHESIA: General. ESTIMATED BLOOD LOSS: Minimal. INDICATIONS: As noted above. Risks and benefits explained in detail and not limited to and consent obtained. DESCRIPTION OF PROCEDURE AND FINDINGS: The patient is taken to the operating room. Site had been confirmed with the patient in the preoperative holding area. General anesthesia introduced. The breast and chest were prepped and draped in usual sterile fashion. After official time out and no disagreement with planned procedure, small spindle-shaped skin overlying the pit dissecting down and medially was getting around the ruptured cyst/abscess cavity. However the area was too wide and purulence tracking in multiple direction. Immediately a large amount of pus exuded from the wound, this was cultured. Dissection out around this abscess cavity was accomplished removing all visible cyst wall and particles this measured about 5.5 cm size and passed off for pathology. Copious amount of irrigated until clear. Hemostasis controlled with some pinpoint cautery. Good hemostasis noted. Given the degree of infection it was felt that some packing should be used. The wound was closed with interrupted 3-0 Vicryl and some interrupted 3-0 Prolene in vertical mattress fashion but given the degree of infection it was felt not safe to just close the entire wound therefore 0.5 inch Iodoform placed in the wound, packed and then sterile dressing applied. Patient tolerated the procedure well. There were no immediate complications. Findings discussed with the family out in the waiting area. Transferred to the recovery room in stable condition. Starting tomorrow should remove the packing and repack wound on a daily basis otherwise change dressing as needed. Continue on Bactrim, script for [employer].
[2018-08-16] MEDS ORDERED: SUBLIMAZE 100 MCG/2 ML ONE (15:42)
[2018-08-16] MEDS ORDERED: Zofran 4 MG/2 ML VIAL ONE (15:42)
[2018-08-16] MEDS ORDERED: NORCO 5/325 MG PO PRN (16:26)
[2018-08-16 17:10] VITALS: O2SAT 97
[2018-08-16 17:18] VITALS: BP 120/69; PULSE 90
== END 2018-08-16 17:15 | disposition home or self-care (01) ==
LOC: SDC 11:26
PROVIDERS: ATTEND Surgery
DX: N60.01 Solitary cyst of right breast (principal); E11.9 Type 2 diabetes mellitus without complications; E78.5 Hyperlipidemia, unspecified; Z79.899 Other long term (current) drug therapy
CPT/HCPCS: 82962; 87070; 87077; J1100; J1885; J2405; J2704; J3010; A9270-GY